=== PATIENT | female | born 1990 | race Caucasian/White ===

== ENCOUNTER 2020-09-21 21:21 | Emergency (ER) | payer BC, SELFPAY ==
[2020-09-21 21:25] VITALS: BP 133/76; PULSE 106; RESP 16; TEMP 36.7; O2SAT 100
--- NOTE | 2020-09-21 22:09 | ED.GENADULT ---
HPI - General Adult General Chief complaint: Vaginal Bleeding Stated complaint: vaginal bleeding Time Seen by Provider: 09/21/20 21:55 History of Present Illness HPI narrative: Patient is a 29-year-old female that came to the emergency department with chief complaint of vaginal bleeding. Patient reports that she is approximately 4 to 6 weeks and noticed today that she had a small amount of bleeding. Patient reports no pain reports that she is not had any blood work in this and has not had an ultrasound in this . The patient reports that she just wants an ultrasound the patient reports that she has not had any blood work in this does not know her Rh status. What is explained to the patient we would need to check at least a Rh she reported that she did not want to do any blood work and had prefer to have the work-up done by her primary COUNTER INTELLIGENCE TECHNICIAN. The patient stated that at this time she would prefer to do sign out AGAINST MEDICAL ADVICE. Review of Systems Review of Systems: Narrative: My review of system PMFSH Comments Patient denies past medical history Social history patient denies illicit drug use Exam Narrative: Exam Narrative: GENERAL: Well-appearing, well-nourished, and in no acute distress. HEAD: Normocephalic, atraumatic. EYES: PERRLA and EOMI. ENT: Nares clear, no rhinorrhea or epistaxis. Mucous membranes moist. NECK: Supple. CHEST: No respiratory distress. EXTREMITIES: Normal range of motion. No edema. SKIN: Warm, dry, no rash. NEURO: No focal deficits. Alert and oriented x3. PSYCH: Normal mood and affect. Course Course Emergency Course: Patient was offered blood work and evaluation including ultrasound the patient reported that she did not want to do the full evaluation and chose to sign out AGAINST MEDICAL ADVICE Vital Signs Vital signs: Vital Signs Temperature 36.7 C 09/21/20 21:25 Pulse Rate 106 H 09/21/20 21:25 Respiratory Rate 16 09/21/20 21:25 Blood Pressure 133/76 09/21/20 21:25 Pulse Oximetry 100 09/21/20 21:25 Temperature 36.7 C 09/21/20 21:25 Pulse Rate 106 H 09/21/20 21:25 Respiratory Rate 16 09/21/20 21:25 Blood Pressure 133/76 09/21/20 21:25 Pulse Oximetry 100 09/21/20 21:25 Medical Decision Making Vital Signs Vital Signs: Vital Signs Temperature 36.7 C 09/21/20 21:25 Pulse Rate 106 H 09/21/20 21:25 Respiratory Rate 16 09/21/20 21:25 Blood Pressure 133/76 09/21/20 21:25 Pulse Oximetry 100 09/21/20 21:25 Temperature 36.7 C 09/21/20 21:25 Pulse Rate 106 H 09/21/20 21:25 Respiratory Rate 16 09/21/20 21:25 Blood Pressure 133/76 09/21/20 21:25 Pulse Oximetry 100 09/21/20 21:25 Discharge Plan Discharge Clinical Impression: Vaginal bleeding, Threatened Patient Disposition: Left Against Medical Advice Condition: Stable Additional Instructions: Please return to the emergency department if you have worsening bleeding, feel as though you are going to pass out, or have severe abdominal pain. Please follow-up with your COUNTER INTELLIGENCE TECHNICIAN as soon as possible Follow-up/Referrals: PHYSICIAN,VETERINARY EPIDEMIOLOGIST [Primary Care Provider] - Pascual Sal DO [Physician] - Time of Disposition: 22:14
== END 2020-09-21 22:19 | disposition left against medical advice (07) ==
PROVIDERS: Emergency Provider Emergency Medicine
DX: O20.0 Threatened abortion (principal); Z3A.01 Less than 8 weeks gestation of pregnancy
CPT/HCPCS: 99281